=== PATIENT | female | born 1975 | race Caucasian/White ===

== ENCOUNTER 2017-05-24 11:33 | Emergency (ER) | payer MEDICAID ==
[2017-05-24 11:43] VITALS: PULSE 102; RESP 18; TEMP 99.5; O2SAT 99
[2017-05-24] MEDS ORDERED: OXYCODONE/APAP 5/325 TAB PO ONE (11:48)
--- NOTE | 2017-05-24 12:23 | EDPHY ---
H & P Time Seen by Provider: 05/24/17 11:49 HPI/ROS: HPI Status post splenectomy, needs more pain medication. 42-year-old female by private vehicle. This patient reports that in February of this year she had an appendectomy at [facility] in [place]. 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 She states that she was just in [place] visiting her daughter. She was developing pain in the left upper quadrant. She ended up having a laparoscopic splenectomy on May 19 at [facility]. She states that she was sent home yesterday back to [place]. She was given apparently 15 Percocet after the surgery on May 19. She reports that she is out of pain medication and is requesting more pain medication until she can see her primary care physician at [facility] this SundayMay 29. She denies fever. She has not been vomiting. No bloody or melenic stool. She denies any significant change in her postoperative pain. She says it is a little better but she still requires pain medication. ROS: Constitutional: No fever, no chills. No weakness. Eyes: No discharge. No changes in vision. ENT: No sore throat. No nasal congestion or rhinorrhea. Respiratory: No cough. No shortness of breath. Cardiac: No chest pain, no palpitations. Gastrointestinal: As above, no vomiting, no diarrhea. Genitourinary: No hematuria. No dysuria or increased frequency with urination. Musculoskeletal: No back pain. No neck pain. No myalgias or arthralgias. Skin: No rashes. Neurological: No headache. No focal weakness or altered sensation. Past medical history: As above. Anxiety, hypertension, pseudotumor cerebri, hysterectomy, x3. Social history: Nonsmoker. Here by herself. Denies alcohol. Physical Exam: General Appearance: Alert, mildly anxious. This patient is responding to questions appropriately and in full sentences. This patient appears well- hydrated and well-nourished. Eyes: Pupils equal and round no pallor or injection. No lid edema, erythema or injection. Gastrointestinal: Abdomen is soft with vague mild tenderness on palpation, she has several laparoscopic surgical scars involving the mid abdomen. These are clean dry and intact, no masses, bowel sounds present. No focal tenderness at McBurney's point. No Walker sign. Neurological: Motor sensory function is grossly intact. Cranial nerves are normal. Gait is normal. Skin: Warm and dry, no rashes. Musculoskeletal: Neck is supple and nontender. Extremities are symmetrical. All joints range without pain or impingement. Psychiatric: No agitation. No depression. Database: EKG: Imaging: Procedures: Emergency department course: Vital signs reviewed. Mildly tachycardic in triage. Temperature 37.5degrees. Moderately hypertensive. Narcotic caution noted on review of her medical records. See Salvatore Luo's note from 10/27/2014. She explained to me that she has an appointment to see her primary care physician on SundayJune 28 needs more pain medication to get her through the weekend. I discussed my concern about narcotic abuse. However, she recently had this surgery and I feel that pain medications are warranted. She will be prescribed 20 Percocet. She is to follow up as scheduled with her primary care physician for further evaluation, management and pain medication prescriptions as needed. Strict return to emergency department precautions were reviewed with her. I discussed my concern about postsurgical complications. She states that she lives near the emergency department and can easily return if needed. All of her questions were answered. She was discharged in good condition. Differential Diagnosis: The differential diagnosis on this patient includes but is not limited to postoperative pain, needs pain medication. Bowel obstruction, abdominal abscess , postsurgical infection, significant postsurgical bleeding unlikely This represents a partial list of diagnoses considered. These considerations are based on history, physical exam, past history, reassessment and diagnostic testing. Smoking Status: Never smoked Constitutional: Initial Vital Signs Temperature (C) 37.5 C 05/24/17 11:39 Heart Rate 102 H 05/24/17 11:39 Respiratory Rate 18 05/24/17 11:39 Blood Pressure 168/120 H 05/24/17 11:39 O2 Sat (%) 99 05/24/17 11:39 O2 Delivery Mode Room Air Allergies/Adverse Reactions: hydrocodone Allergy (Verified 05/24/17 11:38) Home Medications: Medication Instructions Recorded Lisinopril-Hctz 10-12.5 mg Tab 10/06/14 oxyCODONE/APAP 5/325 [Percocet 1 - 2 tab PO Q4-6PRN PRN #20 tab 05/24/17 5/325 (*)] Medical Decision Making - Data Points Medications Given: Discontinued Medications Oxycodone/Acetaminophen (Percocet 5/325) 2 tab PO EDNOW ONE Stop: 05/24/17 11:49 Last Admin: 05/24/17 12:01 Dose: 2 tab Departure - Departure Disposition: Home, Routine, Self-Care Clinical Impression: Status post splenectomy, Request for narcotic pain medication Condition: Good Instructions: Narcotic Pain Management (ED) Additional Instructions: Read and follow provided instructions. Follow-up with your primary care physician as scheduled on SundayMay 29 without fail for re-evaluation and further management. Take medication as prescribed. Jemison/Percocet dosin-2 every 4-6 hours for [address] not drive on this medication. Return to the emergency department immediately for uncontrolled pain on prescribed pain medication, lightheadedness, fever, vomiting or other serious concerns. Referrals: JAI HIRSCH [Primary Care Provider] - As per Instructions Prescriptions: oxyCODONE/APAP 5/325 [Percocet 5/325 (*)] 1 - 2 tab PO Q4-6PRN PRN #20 tab PRN Reason: For Moderate To Severe Pain
[2017-05-24 12:50] VITALS: BP 164/114
== END 2017-05-24 12:46 | disposition home or self-care (01) ==
LOC: CED 11:33
DX: Z76.0 Encounter for issue of repeat prescription (principal); I10 Essential (primary) hypertension; Z90.81 Acquired absence of spleen

== ENCOUNTER 2017-06-06 10:29 | Emergency (ER) | payer MEDICAID ==
[2017-06-06 10:47] VITALS: BP 162/100; PULSE 108; RESP 18; TEMP 98; O2SAT 97
--- NOTE | 2017-06-06 11:04 | EDPHY ---
H & P Stated Complaint: c/o abd pain s/p I-n-D yesterday @ [facility] [place] Time Seen by Provider: 06/06/17 10:32 HPI/ROS: CHIEF COMPLAINT: Abdominal pain History by patient HISTORY OF PRESENT ILLNESS: 42-year-old woman who is 1 month status post splenectomy due to splenic vascular thrombosis prescription of ongoing abdominal pain. Patient states she was seen yesterday at an [facility] and [facility] because she was having localized pain over 1 of her surgical scar sites and that it was red and hard. She states they did an ultrasound and then an I and D and packed the wound. She was sent home with ibuprofen but has continued to have pain around the site. Pain is worse when he bends over or moves around. Does not radiate into her back. She denies any fever chills. She has had no nausea or vomiting. She has had no diarrhea. She is able to eat. She says the wound was not hurting until the anesthetic wore off. The pain is very much localized to the wound area. REVIEW OF SYSTEMS: As in HPI, and all other systems reviewed and are negative Source: Patient - Personal History LMP (Females 10-55): Hysterectomy Current Tetanus Diphtheria and Acellular Pertussis (TDAP): Yes Tetanus Vaccine Date: 2007 - Medical/Surgical History Hx Asthma: No Hx Chronic Respiratory Disease: No Hx Diabetes: No Hx Cardiac Disease: No Hx Renal Disease: No Hx Cirrhosis: No Hx Alcoholism: No Hx HIV/AIDS: No Hx Splenectomy or Spleen Trauma: No Other PMH: HBP,ANXIETY, spleenectomey and appendectomy 2017. 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 C SECTIONS X 3 - Social History Smoking Status: Never smoked - Physical Exam Exam: General Appearance: Alert, obese, nontoxic-appearing. Eyes: Pupils equal and round no pallor or injection. ENT, Mouth: Mucous membranes moist. Respiratory: Normal, effort, lungs are clear to auscultation. No wheezes, rales or rhonchi. Cardiovascular: Regular rate and rhythm. S1, S2, no murmurs, gallops or rubs appreciated Gastrointestinal: Positive 1 cm packed laparoscopic wound above her umbilicus with packing in place with minimal serosanguineous drainage, no purulence, no surrounding erythema, bowel sounds present, Abdomen is soft and very mild poorly localized tenderness, no masses Back: No CVA tenderness, no bony tenderness Neurological: Awake, alert and oriented x 3, no pronator drift, normal gait, no pronator drift Skin: Warm and dry, no rashes. Musculoskeletal: No deformities or tenderness. Extremitie:s full range of motion, no edema Psychiatric: Patient has normal affect, there is no agitation. Constitutional: Initial Vital Signs Temperature (C) 36.6 C 06/06/17 10:43 Heart Rate 108 H 06/06/17 10:43 Respiratory Rate 18 06/06/17 10:43 Blood Pressure 162/100 H 06/06/17 10:43 O2 Sat (%) 97 06/06/17 10:43 O2 Delivery Mode Room Air Allergies/Adverse Reactions: hydrocodone Allergy (Verified 05/24/17 11:38) Home Medications: Medication Instructions Recorded Lisinopril-Hctz 10-12.5 mg Tab 10/06/14 oxyCODONE/APAP 5/325 [Percocet 1 - 2 tab PO Q4-6PRN PRN #20 tab 05/24/17 5/325 (*)] Medical Decision Making ED Course/Re-evaluation: 42-year-old woman presents with ongoing pain at the site of a surgical wound abscess drainage which was performed yesterday at another facility. Patient was unable to identify where this was done and I attempted to look it up in [facility] but could find no records on her. The wound itself appears clean with no evidence of active infection. Patient has very minimal surrounding tenderness and there is no evidence of systemic toxicity or associated symptoms that suggest a deeper intra-abdominal abscess at this time. I did discuss this possibility with the patient and that the next step would be to perform a CT scan, however I think watchful waiting is also a reasonable approach given her lack of associated symptoms and that an ultrasound showed a localized surface abscess or fluid collection yesterday. I did emphasize the need for the patient to be recheck by her primary care physician on Sunday and sooner here if worse. I offered the patient to be anesthetized the area with local anesthetic however she declined. She has been taking ibuprofen and I suggest she take acetaminophen with the ibuprofen as well as icing through her dressing. We did change the dressing for her. I do not recommend narcotic pain medication for this high risk patient who has been seen previously for opiate detox and dependence per [facility] records. Departure - Departure Disposition: Home, Routine, Self-Care Clinical Impression: Abdominal wall abscess at site of surgical wound Condition: Good Instructions: Abscess (ED) Additional Instructions: You were seen by Dr. Chelle Verma today. Take ibuprofen 600 mg 4 times daily and if this is not sufficient for your pain add acetaminophen (Tylenol) 1000 mg 4 times a day. You may directly ice the wound through the bandage. Please see your physician as scheduled on Sunday for the dressing and packing change. Return immediately if you develops fever, spreading redness, worsening pain, nausea vomiting or other new problems or concerns. Return for any worsening or new concerns. Referrals: ANA CRISTINA DAN,. [Primary Care Provider] - As per Instructions
== END 2017-06-06 11:19 | disposition home or self-care (01) ==
LOC: CED 10:29
DX: T81.4XXA Infection following a procedure, initial encounter (principal); Y73.2 Prosthetic and other implants, materials and accessory gastroenterology and urology devices associated with adverse incidents

== ENCOUNTER 2017-06-07 08:25 | Emergency (ER) | payer MEDICAID ==
[2017-06-07 08:42] VITALS: TEMP 98.8
[2017-06-07] MEDS ORDERED: NS 1,000 ML IV ONE (08:43)
--- NOTE | 2017-06-07 08:44 | EDPHY ---
H & P HPI/ROS: CC: Abdominal pain HPI: This 42 y/o female with recent I&D of a fluid collection s/p lap splenectomy on May 19 presents to the ED with c/o abdominal pain at site of I&D. According to the patient and prior record, she developed a thrombosis in the splenic vasculature after an appendectomy requiring the splenectomy (she states a coagulation work-up was negative). She subsequently developed a small fluid collection at the periumbilical laparoscopy site and underwent an I&D at an Urgent Care. She was seen here yesterday for pain and was told if the pain persisted the next step would be to perform a CT scan. She has follow-up with her PCP tomorrow but states the pain prompted her to return this evening. She denies fever but has felt hot and cold. She has nausea but no vomiting. The pain is sharp and does not radiate. No relief with OTC meds (patient has h/o opiate dependence and detox per prior records in our system and [facility] which I reviewed). She denies dysuria, constipation, diarrhea. The remainder of the 10 point review of systems is negative. 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 C SECTIONS X 3 - Family History Significant Family History: Hypertension - Social History Smoking Status: Never smoked Alcohol Use: None Drug Use: Other (h/o opiate dependence) - Physical Exam Exam: GEN: A/O x 3, in moderate discomfort Skin: Warm, dry, no rashes. HEENT: NC/AT, PERRL, EOMI, oropharynx clear with moist mucosa Neck: supple, FROM, nontender Cardiac: RRR, no M/G/R Pulm: CTAB, no R/R/W Abdoment: soft, +TTP periumbilically, no R/G/R, No masses. No erythema at site of wound. No drainage from wound. No packing in place ("it fell out"). Ext: No C/C/E. No calf tenderness, warmth, cords or erythema. Neuro: nonfocal Constitutional: Initial Vital Signs Temperature (C) 98.8 F 06/07/17 08:40 Heart Rate 112 H 06/07/17 08:40 Respiratory Rate 20 06/07/17 08:40 Blood Pressure 176/129 H 06/07/17 08:40 O2 Sat (%) 99 06/07/17 08:40 O2 Delivery Mode Room Air Allergies/Adverse Reactions: hydrocodone Allergy (Verified 06/07/17 08:38) Home Medications: Medication Instructions Recorded Lisinopril-Hctz 10-12.5 mg Tab 10/06/14 Medical Decision Making - Diagnostics Imaging: Discussed imaging studies w/ call worker Radiologist ED Course/Re-evaluation: The patient was seen and examined. VS reviewed and the BP was elevated. Discussed following this with her PCP tomorrow. Prior records including [facility] reviewed. She was given IVF and a small dose of Morphine (2mg) while awaiting CT of abd/pelvis. CT read as essentially negative per verbal report from radiologist. The patient is to follow up with per PCP tomorrow as scheduled. No RX given. Differential Diagnosis: DDX considered for but not limited to: Abscess, obstruction, hemorrhage, thrombosis. - Data Points Laboratory Results: Laboratory Results 06/07/17 08:59 06/07/17 08:59 Medications Given: Discontinued Medications Sodium Chloride (Ns) 1,000 mls @ 3,000 mls/hr IV ONCE ONE Stop: 06/07/17 09:02 Last Admin: 06/07/17 09:31 Dose: 1,000 mls Morphine Sulfate (Morphine) 2 mg IVP EDNOW ONE Stop: 06/07/17 09:29 Last Admin: 06/07/17 09:32 Dose: 2 mg Departure - Departure Disposition: Home, Routine, Self-Care Clinical Impression: Abdominal pain Condition: Good Instructions: Acute Abdominal Pain (ED), Chronic Hypertension (ED), Incision and Drainage (ED) Additional Instructions: The preliminary CT report shows no concerning findings. Have your primary care provider review the final report at your follow up appointment tomorrow. Return to the ED if fever, vomiting or any other concerns. Have your primary care provider also recheck your blood pressure. It was high today in the ED an you may need further monitoring and/or a change in your blood pressure medication. Referrals: ANA CRISTINA DAN,. [Primary Care Provider] - As per Instructions
[2017-06-07 09:13] LABS: % IMMATURE GRANULYOCYTES 0.3 % (0.0-1.1); ABSOLUTE IMMATURE GRANULOCYTES 0.02 10^3/uL (0.00-0.10); ADD DIFF? NO; ADD MORPH? NO; ADD SCAN? NO; ATYPICAL LYMPHOCYTE FLAG 10 (0-99); FRAGMENT RBC FLAG 20 (0-99); HEMATOCRIT 33.5 % (38.0-47.0); HEMOGLOBIN 10.7 g/dL (12.6-16.3); LEFT SHIFT FLG 0 (0-99); LIPEMIA HEMOLYSIS FLAG 80 (0-99); MEAN CELL HEMOGLOBIN 28.5 pg (27.9-34.1); MEAN CELL HEMOGLOBIN CONCENTR. 31.9 g/dL (32.4-36.7); MEAN CELL VOLUME 89.1 fL (81.5-99.8); MEAN PLATELET VOLUME 10.3 fL (8.7-11.7); PLATELET CLUMPS FLAG 0 (0-99); PLATELET COUNT 427 10^3/uL (150-400); RED BLOOD CELL COUNT 3.76 10^6/uL (4.18-5.33); RED CELL DISTRIBUTION WIDTH 14.3 % (11.5-15.2)
[2017-06-07] MEDS ORDERED: IOPAMIDOL (ISOVUE-300) 100 ML BTL ONE (09:23)
[2017-06-07 09:33] LABS: ALANINE AMINOTRANSFERASE 29 IU/L (9-52); ALBUMIN 4.4 g/dL (3.5-5.0); ALKALINE PHOSPHATASE 40 IU/L (38-126); ANION GAP 12 mEq/L (8-16); ASPARTATE AMINOTRANSFERASE 15 IU/L (14-46); BILIRUBIN,TOTAL 0.6 mg/dL (0.1-1.4); BILIRUBIN-CONJUGATED 0.5 mg/dL (0.0-0.5); BILIRUBIN-UNCONJUGATED 0.1 mg/dL (0.0-1.1); CALCIUM 9.9 mg/dL (8.5-10.4); CARBON DIOXIDE 25 mEq/l (22-31); CHLORIDE 105 mEq/L (97-110); CREATININE 0.7 mg/dL (0.6-1.0); GLOMERULAR FILTRATION RATE > 60; GLUCOSE 109 mg/dL (70-100); POTASSIUM 3.7 mEq/L (3.5-5.2); SODIUM 142 mEq/L (134-144); TOTAL PROTEIN 7.7 g/dL (6.3-8.2)
[2017-06-07 10:09] VITALS: RESP 18
[2017-06-07 11:01] VITALS: BP 167/128; PULSE 90; O2SAT 98
== END 2017-06-07 10:55 | disposition home or self-care (01) ==
LOC: CED 08:25
PROC: 3E0337Z Introduction of Electrolytic and Water Balance Substance into Peripheral Vein, Percutaneous Approach (ICD-10-PCS; principal; 2017-06-07)
DX: G89.18 Other acute postprocedural pain (principal); R10.33 Periumbilical pain; I10 Essential (primary) hypertension; E86.9 Volume depletion, unspecified; Z90.49 Acquired absence of other specified parts of digestive tract; Z90.710 Acquired absence of both cervix and uterus
CPT/HCPCS: 74177-PO; 80048-PO; 80076-PO; 83605-PO; 83690-PO; 85025-PO; 96374; Q9967

== ENCOUNTER → 2017-06-25 | Outpatient (CLI) | payer OTHER ==
[~2017-06-25] MED LIST: LIDOCAINE 1% 300 MG/30 ML SDV ONE
== END ==
LOC: FIMAGING 08:28
PROVIDERS: ATTEND Internal Medicine
PROC: 009U3ZX Drainage of Spinal Canal, Percutaneous Approach, Diagnostic (ICD-10-PCS; principal; 2017-06-25)
DX: Z12.89 Encounter for screening for malignant neoplasm of other sites (principal)

== ENCOUNTER → 2017-07-30 | Outpatient (CLI) | payer OTHER | LOC: FIMAGING 07:50 | PROVIDERS: ATTEND Family Medicine | DX: S31.109A Unspecified open wound of abdominal wall, unspecified quadrant without penetration into peritoneal cavity, initial encounter (principal) ==

== ENCOUNTER 2017-08-22 00:36 | Emergency (ER) | payer OTHER ==
[2017-08-22 00:46] VITALS: TEMP 98.1
--- NOTE | 2017-08-22 01:24 | EDPHY ---
H & P Stated Complaint: hands and feet are cold and painful Time Seen by Provider: 08/22/17 00:37 HPI/ROS: HPI The patient presents with hand pain which has been present for the last 1 month which initially began as numbness in both of her hands at night. When she awoke and shook her hands her symptoms improved., however over the last 1 week her symptoms have been worse. She has noticed that her hands feel very cold and turn blue on occasion. They are tingling when this happens. She was seen by a medical provider in [place] and some blood work was performed. She says that with warmth her hands all much better. She also notices some symptoms in her feet. She has no prior history of similar.. REVIEW OF SYSTEMS Constitutional: No fever, no chills. Eyes: No discharge. ENT: No sore throat. Cardiovascular: No chest pain, no palpitations. Respiratory: No cough, no shortness of breath. Gastrointestinal: No abdominal pain, no vomiting. Genitourinary: No hematuria. Musculoskeletal: No back pain. Skin: No rashes. Neurological: No headache. 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 Soc Hx: Currently incarcerated PHYSICAL General Appearance: Alert, no distress Eyes: Pupils equal and round no pallor or injection ENT, Mouth: Mucous membranes moist Respiratory: There are no retractions, lungs are clear to auscultation Cardiovascular: Regular rate and rhythm Gastrointestinal: Abdomen is soft and non-tender, no masses, bowel sounds normal Neurological: A&O, moves all extremities Skin: Warm and dry, no rashes Musculoskeletal: Neck is supple non tender Extremities: Fingers bilaterally are whitish blue in color, cap refill is present though delayed, +radial pulses laterally, sensation is intact to light touch throughout and she has normal range of motion of her fingers Psychiatric: Patient is oriented X 3, there is no agitation Source: Patient Exam Limitations: No limitations - Personal History LMP (Females 10-55): Hysterectomy Current Tetanus/Diphtheria Vaccine: Yes Current Tetanus Diphtheria and Acellular Pertussis (TDAP): Yes Tetanus Vaccine Date: 2007 - Medical/Surgical History Hx Asthma: No Hx Chronic Respiratory Disease: No Hx Diabetes: No Hx Cardiac Disease: No Hx Renal Disease: No Hx Cirrhosis: No Hx Alcoholism: No Hx HIV/AIDS: No Hx Splenectomy or Spleen Trauma: No Other PMH: HBP,ANXIETY, spleenectomey and appendectomy 2017. 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 C SECTIONS X 3 - Social History Smoking Status: Never smoked Constitutional: Initial Vital Signs Temperature (C) 36.7 C 08/22/17 00:41 Heart Rate 99 08/22/17 00:41 Respiratory Rate 18 08/22/17 00:41 Blood Pressure 147/103 H 08/22/17 00:41 O2 Sat (%) 95 08/22/17 00:41 O2 Delivery Mode Room Air Allergies/Adverse Reactions: hydrocodone Allergy (Verified 08/22/17 00:41) Home Medications: Medication Instructions Recorded Lisinopril-Hctz 10-12.5 mg Tab 10/06/14 Amitriptyline HCl 08/22/17 Medical Decision Making Differential Diagnosis: This is a 42-year-old female who presents with bilateral hand tingling and cold sensation of her fingers, worse with cold exposure, associated with color change of her fingers. On exam she has whitish blue discoloration of some of her digits. She has normal pulses. She likely has Raynaud syndrome. I doubt acute ischemic limb ischemia given normal pulses and resolution of symptoms when she warms her hands. I doubt vasculitis. The emergency department, patient was given a warm blanket for her hands with complete resolution of her symptoms. I provided her with information on this phenomenon and have told her about treatments to employ a when this happens. She may benefit from wearing more layers of clothing, gloves as needed. Given this is her 1st presentation, I will not start her on any medications, I have given her information for a learning support assistant. Departure - Departure Disposition: Law Enforcement/Court/Long-Term Clinical Impression: Raynauds phenomenon Qualifiers: Raynaud?s-associated gangrene presence: without gangrene Qualified Code(s): I73.00 - Raynaud's syndrome without gangrene Condition: Good Instructions: Raynaud Disease (ED) Additional Instructions: Please return to the emergency department if your worse in any way. Please use rewarming for your hands when they are cold. You can use warm blankets are put your hands in your armpits.. You may benefit from wearing gloves and generally dressing normally. You should avoid changes in temperature if you can. If you feel the symptoms coming on, you should spring your arms in circles to see if you can restore the circulation. You continue to have symptoms, you may eventually benefit from seeing a learning support assistant. You can take ibuprofen 600 mg 4 times a day and acetaminophen 650 mg 4 times a day as needed for pain. Referrals: Elder Rodriguez MD [[facility] Primary Care Provider] - As per Instructions
[2017-08-22 01:41] VITALS: BP 141/80; PULSE 78; RESP 16; O2SAT 98
== END 2017-08-22 01:41 ==
DX: I73.00 Raynaud's syndrome without gangrene (principal)